=== PATIENT | female | born 1970 | race Two or more races ===

== ENCOUNTER 2019-12-16 14:28 | Outpatient (CLI) | payer OTHER | END 2019-12-26 08:42 | disposition home or self-care (01) | LOC: RAD 14:28 | PROVIDERS: ATTEND Colon & Rectal Surgery | DX: D12.9 Benign neoplasm of anus and anal canal (principal); D12.8 Benign neoplasm of rectum; Z86.010 Personal history of colon polyps; K92.1 Melena ==

== ENCOUNTER 2019-12-18 06:15 | Day surgery (SDC) | payer OTHER | END 2019-12-18 13:30 | disposition home or self-care (01) | LOC: CIR.AMB 06:15 | DX: D12.9 Benign neoplasm of anus and anal canal (principal); D12.8 Benign neoplasm of rectum | CPT/HCPCS: 0184T; 64430 ==